=== PATIENT | female | born 1990 | race African-American/Black ===

== ENCOUNTER 2020-12-21 12:21 | Emergency (ER) | payer OTHER ==
[~2020-12-21] VITALS: Ht 172.7 cm; Wt 118.5 kg
[2020-12-21 12:22] VITALS: BP 142/86
== END 2020-12-21 13:58 | disposition home or self-care (01) ==
LOC: M ED 12:21
DX: R21 Rash and other nonspecific skin eruption (principal)

== ENCOUNTER 2021-04-14 19:48 | Emergency (ER) | payer OTHER ==
[~2021-04-14] VITALS: Ht 172.7 cm; Wt 120.5 kg
[2021-04-14 19:48] VITALS: BP 135/90
== END 2021-04-14 20:30 | disposition left against medical advice (07) ==
LOC: M ED 20:30
DX: Z53.21 Procedure and treatment not carried out due to patient leaving prior to being seen by health care provider (principal)

== ENCOUNTER 2021-04-17 18:32 | Emergency (ER) | payer OTHER ==
[~2021-04-17] VITALS: Ht 172.7 cm; Wt 120.5 kg
[2021-04-17 18:33] VITALS: BP 157/82
--- OUTSIDE RECORDS SUMMARY | 2021-04-17 18:39 | CCD ---
Author Author [facility] Organization [facility] Address Unknown Phone Unavailable Care Team Providers Care Screw Machine Operator Swiss Type Name Role Phone LUCY WAKEFIELD Unavailable Unavailable TURRIN, GUANAKO Unavailable Unavailable TURRIN, GUANAKO Unavailable Unavailable TURRIN, GUANAKO Unavailable Unavailable TURRIN, GUANAKO Unavailable Unavailable Re-disclosure Warning The records that you are about to access may contain information from federally-assisted alcohol or drug abuse programs. If such information is present, then the following federally mandated warning applies: This information has been disclosed to you from records protected by federal confidentiality rules (42 CFR part 2). The federal rules prohibit you from making any further disclosure of this information unless further disclosure is expressly permitted by the written consent of the person to whom it pertains or as otherwise permitted by 42 CFR part 2. A general authorization for the release of medical or other information is NOT sufficient for this purpose. The Federal rules restrict any use of the information to criminally investigate or prosecute any alcohol or drug abuse patient.The records that you are about to access may contain highly sensitive health information, the redisclosure of which is protected by Article 27-F of the [facility] Public Health law. If you continue you may have access to information: Regarding HIV / AIDS; Provided by facilities licensed or operated by the [facility] Office of Mental Health; or Provided by the [facility] Office for People With Developmental Disabilities. If such information is present, then the following [facility] mandated warning applies: This information has been disclosed to you from confidential records which are protected by state law. State law prohibits you from making any further disclosure of this information without the specific written consent of the person to whom it pertains, or as otherwise permitted by law. Any unauthorized further disclosure in violation of state law may result in a fine or longterm sentence or both. A general authorization for the release of medical or other information is NOT sufficient authorization for further disc losure. Encounters Encounter Providers Location Date Indications Data Source(s ) Emergency Attender: GUANAKO LOOConsultant: LUCY WAKEFIELD 04/14/2021 08:51:00 PM EST - 04/14/2021 10:59:00 PM EST [facility] Patient discharged. Medications No Information Insurance Providers Payer name Policy type / Coverage type Policy ID Covered libertarian ID Covered libertarian's relationship to thomas Policy Thomas Plan Information [facility] [id number] [facility] - O/P [id number] 18 [id number] Problems, Conditions, and Diagnoses No Information Surgeries/Procedures No Information Results ID Date Data Source [id number] 04/14/2021 08:51:00 PM EST [facility] 1 OrderSheet [facility] Emergency Department [address] [place] [address] Phone #: ext- [phone] 04/14/2021 20:47 Patient: CARLOS MANUEL RUIZ Sex: F : 1990 Age: 30yWEIGHT:120.2 kg HEIGHT:68 inches BMI:40.3ALLERGIES: IbuprofenCHIEF COMPLAINT: pelvic painDIAGNOSIS: Primary dysmenorrheaLAB ORDERSOrder Description Priority Entered Acknowledged InitialedCBC w Diff STAT 21:49 04/14/2021 21:52 Antonette Dumont Riccardo Katelyn M.D.;CMP STAT 21:49 04/14/2021 21:52 Antonette Dumont Riccardo Katelyn M.D.;HCG Serum Quant STAT 21:49 04/14/2021 21:52 Antonette Dumont Riccardo Katelyn M.D.;Type Rh STAT 21:49 04/14/2021 21:52 Antonette Dumont Riccardo Katelyn M.D.;UA Reflex to UA STAT 21:49 04/14/2021 21:52 Cedric Dumont Riccardo Katelyn M.D.;Lipase STAT 21:49 04/14/2021 21:52 Antonette Dumont Riccardo Katelyn M.D.;Lactic Acid STAT 21:49 04/14/2021 21:52 Antonette Dumont Riccardo Katelyn M.D.;DIAGNOSTIC STUDY ORDERSOrder Description Priority Entered Acknowledged InitialedMEDICATION/IV/DRIP/FLUID ORDERSOrder Description Priority Entered Acknowledged InitialedNaproxen PO 500 22:37 04/14/2021 Ack'd: 22:37 22:39 mg Antonette Kaufman Riccardo Torchia, Laura R.N. Laura R.N. M.D.; 2 OrderSheet [facility] Emergency Department [address] [place] [address] Phone #: ext- [phone] 04/14/2021 20:47 Patient: CARLOS MANUEL RUIZ Sex: F : 1990 Age: 30yGENERAL ORDERSOrder Description Priority Entered Acknowledged Initialed[Electronically signed by Tiffany Kaufman R.N. (22:59 04/14/2021)][Electronically signed by Guanako Loo M.D. (23:00 04/14/2021)][Electronically locked by Tiffany Kaufman R.N. (22:59 04/14/2021)] Name Value Range Interpretation Code Description Data Wanda rce(s) Supporting Document(s) ID Date Data Source [id number] 04/14/2021 08:51:00 PM EST [facility] 1 Medication Reconciliation Report [facility] Emergency Department [address] [place] [address] Phone #: ext- [phone] 04/14/2021 20:47 Patient: CARLOS MANUEL RUIZ Sex: F : 1990 Age: 30yWeight: 120.2 kgHeight/Length: 68 in.BMI: 40.3ALLERGIES: IbuprofenThe patient's Home Medications are listed below:NONE.The source(s) of the original Home Medication information:Not obtained.The following Medications were given to the patient in the Emergency Department:Naproxen [PO] PO 500 mg, administered: 22:39 04/14/2021The following Medications were prescribed to the patient:Naprosyn 500 mg tablet Take 1 tablet twice a day as needed for pain for 7 days -- take with food.Dispense 14 tablet. Refills: 0. Substitution permitted.Pharmacy - [address] ; [place] [address]. . -- Guanako Loo M.D. Name Value Range Interpretation Code Description Data Wanda rce(s) Supporting Document(s) ID Date Data Source [id number] 04/14/2021 08:51:00 PM EST [facility] 1 Medication Administration Record [facility] Emergency Department [address] [place] [address] Phone #: ext- [phone] 04/14/2021 20:47 Patient: CARLOS MANUEL RUIZ Sex: F : 1990 Age: 30yWeight: 120.2 kgHeight/Length: 68 inBMI: 40.3ALLERGIES: Ibuprofen Date/Time Medication Administered Medication OrderedGiven NAPROXEN [PO] Naproxen PO 500 mg22:39 04/14/2021 Dose: 500 mg Tiffany Smith R.N. Name Value Range Interpretation Code Description Data Wanda rce(s) Supporting Document(s) ID Date Data Source [id number] 04/14/2021 08:51:00 PM EST [facility] 1 General Instructions [facility] Emergency Department [address] [place] [address] Phone #: ext- [phone] 04/14/2021 20:47 Patient: CARLOS MANUEL RUIZ Sex: F : 1990 Age: 30y Primary dysmenorrheaINSTRUCTIONS Drink plenty of fluids. Warnings: Further evaluation is necessary in order to conduct further tests. It is very important to follow up with a healthcare provider. GENERAL WARNINGS: Return or contact your physician immediately if your condition worsens or changes unexpectedly, if not improving as expected, or if other problems arise. Specifically return if pain, vomiting, bleeding, breathing difficulty or fever greater than 102 degrees F and not controlled by acetaminophen or ibuprofen. Your Current Medications: . No home medication. Prescription Medications: Naprosyn 500 mg tablet Take 1 tablet twice a day as needed for pain for 7 days -- take with food. Dispense 14 tablet. Refills: 0. Substitution permitted. Pharmacy - [facility] - [id number] ; [place] [address]. . Follow-up: Return to the emergency department as needed. Follow up with your healthcare provider in five days even if well. Call for an appointment. Reason for referral: evaluation and treatment. Summary of care provided to patient via paper. Follow up with a sem manager in three days even if well. Call for an appointment. Reason for referral: evaluation and treatment. Summary of care provided to patient via paper. Understanding of the discharge instructions verbalized by patient. Expected course of illness, discharge instructions, activity level, diet, prescriptions x1, follow-up appointment and risks and benefits of treatment reviewed with patient and understanding verbalized. Agrees to plan of care. [facility]: [facility], , , [address], [place], [address] Follow up in three days even if well. Call for an appointment. Reason for referral: evaluation and treatment. Summary of care provided to patient via paper. 2 General Instructions [facility] Emergency Department [address] [place] [address] Phone #: ext- [phone] 04/14/2021 20:47 Patient: CARLOS MANUEL RUIZ Sex: F : 1990 Age: 30y ADDITIONAL INFORMATIONPainful Menstrual Periods (Dysmenorrhea)Dysmenorrhea is the term used to describe painful menstrual periods.The uterus is a muscle. Normally, chemicals called prostaglan dins cause the uterus to contract duringyour period. The contractions push out the build-up of tissue that occurs each month inside theuterus. If the contraction is very strong, it can cause pain. The pain may feel like cramping in thelower belly (abdomen), lower back, or thighs. In severe cases, you may have other symptoms as well.These can include nausea, vomiting, loose stools, sweating, or dizziness.There are 2 types of dysmenorrhea:Primary dysmenorrhea. This is common menstrual cramps. It may begin 1 or 2 years after you firstget your period. It may get better or go away as you get older or when you have a baby. The crampsare most often felt just before, or on the first day of your period. They may last 1 to 3 days. Treatmentis with medicines and comfort measures as described below (see the "Home care" section).Secondary dysmenorrhea . This may start later in life. It describes menstrual pain that occurs due reed underlying health problem. The pain may last longer than common menstrual cramps. It may alsoget worse over time. Some problems that can lead to secondary dysmenorrhea include: Pelvic inflammatory disease (PID). Infection that involves the female reproductive organs, such as the uterus and fallopian tubes Fibroids. Noncancer (benign) growths within the wall of the uterus. Endometriosis. Tissue that normally only lines the uterus also grows outside of it (because the abnormal tissue also swells and bleeds each month, it can cause pain). 3 General Instructions [facility] Emergency Department [address] [place] [address] Phone #: ext- [phone] 04/14/2021 20:47 Patient: CARLOS MANUEL RUIZ Sex: F : 1990 Age: 30yOnce the cause of secondary dysmenorrhea is found, it can be treated. Your healthcare provider willdiscuss options with you as needed. Your care may also include some of the treatments describedbelow (see the "Home care" section).Home careMedicinesCertain medicines can help ease or prevent menstrual pain and cramping. These can include: Nonsteroidal anti-inflammatory drugs (NSAIDs), such as ibuprofen Prescription pain medicine, if needed Hormone therapy (this includes most methods of hormonal control such as pills, vaginal rings, patches, shots, or a hormone-releasing IUD)General careTo help ease pain and cramping, try these tips: Rest as needed. Apply a heating pad to the lower belly or back as directed. A warm bath or massage to th kt areas may also help. Exercise regularly. Many women find that being more active each week helps reduce pain and cramping. Ask your healthcare provider for advice about other treatments you can try to help control pain and cramping.Follow-up careFollow up with your healthcare provider, or as advised.When to get medical adviceCall your healthcare provider right away if any of these occur: Fever of 100.4F (38C) or higher, or as directed by your provider Pain or cramping gets worse or doesn't get better with medicine Pain or cramping lasts longer than normal or occurs between periods Abnormal vaginal discharge between periods 4 General Instructions [facility] Emergency Department [address] [place] [address] Phone #: ext- [phone] 04/14/2021 20:47 Patient: CARLOS MANUEL RUIZ Sex: F : 1990 Age: 30y Bleeding becomes heavy (soaking more t hardy 1 pad or tampon every hour for 3 hours) Brush or renee tissue passes from the vagina [employer]. All rights reserved. This information is not intended as a substitute for professional medical care. Alwaysfollow your healthcare professional's instructions. You have been given the following additional information: Painful Menstrual Periods (Dysmenorrhea)(Electronically signed by Guanako Loo M.D. 04/14/2021 23:00) Name Value Range Interpretation Code Description Data Wanda rce(s) Supporting Document(s) ID Date Data Source [id number] 04/14/2021 08:51:00 PM EST [facility] 1 Clinical Report - Nurses [facility] Emergency Department [address] [place] [address] Phone #: cqs- [phone] 04/14/2021 20:47 Patient: CARLOS MANUEL RUIZ Sex: F : 1990 Age: 30yTRIAGEArrived by private vehicle. Historian: patient. Accompanied by friend and (in car).Acuity: LEVEL 4.Chief Complaint: (pelvic cramping).Alert. No acute distress.Onset. (2 weeks ago). ( Patient states 2 weeks ago she found out she was on a homepregnancy test. States she followed up for a blood test and it was negative. Since then, she has beenspotting and cramping.).Treatment LIVING SUPERVISOR:None.SEPSIS SCREEN: NEGATIVE.SEVERE SEPSIS SCREEN NEGATIVE. No signs of organ dysfunction present. --21:34 04/14/21 Pat Dumont1:28 04/14/21. BP: 133/92. HR: 74. RR: 18. O2 saturation: 100%. Temp: 97.3 F. Pain level now 11/23.--21:34 04/14/21 Renee Dumont.Weight: 120.2 kg. Height/Length: 68 inches. BMI: 40.3. --21:27 04/14/21 Renee Dumont.MedicationsNone. --21:30 04/14/21 Renee Dumont.AllergiesIbuprofen. --21:30 04/14/21 Renee Dumont.PROBLEMS:Nephrolithiasis.Gastric ulcer. --21:31 04/14/21 Jovana DumontnTubal . --21:34 04/14/21 Renee Dumont.ADDITIONAL SURGERIES:Endoscopy.Left kidney removed. --21:31 04/14/21 Bill Dumontalpingectomy (Right w appendectomy). --21:57 04/14/21 Guanako Loo M.D.The following entry was struck by Guanako Loo M.D., 21:57 04/14/21 2 Clinical Report - Nurses [facility] Emergency Department [address] [place] [address] Phone #: ext- [phone] 04/14/2021 20:47 ------ Patient: CARLOS MANUEL RUIZ [facility] Ll[facility]#: [id number] Sex: F : 1990 Age: 30y Salpingectomy (Left). --21:31 04/14/21 Renee Dumont. History PAST MEDICAL HX: Last normal menstrual period- March 19. SOCIAL HX: Never smoker. Occasional alcohol use. No drug use. No recent travel. No known contact with a sick individual. She was offered HIV testing but declined. Patient education was provided. She was offered hepatitis C testing but declined. Patient education was provided. She has not traveled outside the [place] Infectious disease exposure: No infectious disease exposure. The patient was not exposed to Coronavirus. Patient is not a known carrier of tuberculosis, hepatitis, HIV, MRSA or VRE. Patient is not a known carrier of CRE. SELF HARM ASSESSMENT: Self harm assessment was performed. The patient answered "no" to the question(s) &q uot;Have you recently felt down, depressed, or hopeless?" and "Do you have thoughts of harming or killing yourself?". ABUSE ASSESSMENT: Abuse assessment. The patient had positive responses to the question(s) "Do you feel safe in your home?" and "Are you afraid to go home?". Abuse denied. No suspicion of abuse. No report of abuse. NUTRITIONAL RISK ASSESSMENT: The nutritional risk assessment revealed no deficiencies. FUNCTIONAL ASSESSMENT: Functional assessment: no impairments noted. LEARNING NEEDS ASSESSMENT: The learning needs assessment revealed no barriers. FALL RISK ASSESSMENT: Fall risk assessment completed. No risk factors identified. SKIN INTEGRITY ASSESSMENT: Skin integrity risk assessment completed. No skin integrity risk identified. --21:34 04/14/21 Renee Dumont. Interventions Identification band on patient. --21:34 04/14/21 Renee Dumont.PHYSICAL ASSESSMENTAmbulatory to room.GENERAL / NEURO / PSYCH: Alert. Oriented X 4. Appears in no acute distress.HEENT: Mucous membranes are pink.RESPIRATORY: Respirations not labored. Breath sounds within normal limits.CVS: Normal sinus rhythm noted. Capillary refill less than 2 seconds.GI / : Abdomen soft and nontender. Bowel sounds within normal limits. ( patient reports intermittentpelvic cramping).SKIN: Skin is warm and dry. --21:35 04/14/21 Renee Dumont. 3 Clinical Report - Nurses [facility] Emergency Department [address] [place] [address] Phone #: ext- [phone] 04/14/2021 20:47 Patient: CARLOS MANUEL RUIZ Sex: F : 1990 Age: 30yNURSING PROGRESS NOTESPatient gowned. Reassurance given. Two patient identifiers checked. Call light placed in reach. Siderails up x 2. Bed placed in lowest position. Brakes of bed on. Patient ready for evaluation. --21: Renee Dumont Reassurance given. Rounding: Pain: assessed pain level. Position: states comfortable. Personal care / toileting: denies toileting needs. Proximity of possessions / care items: call light within easy reach. ( Lab in room for blood draw). --21:53 04/14/21 Renee Dumont 22:39 04/14/2021 Naproxen PO 500 mg given. Allergies verified and confirmed 5 rights. Information reviewed with patient. Verbalizes understanding. --22:39 04/14/21 Tiffany Kaufman R.N.DISPOSITION / DISCHARGE Departure time: late entry - 22:54 04/14/2021. Condition at departure: stable. No learning barriers present. Discharge instructions provided and reviewed with the patient. Reviewed warnings . Reviewed medication(s). Treatments reviewed. Reviewed referral to an army ranger for followup. Patient verbalized understanding. Written instructions provided in Jamaican. The patient was discharged by the physician. She was discharged home. She left ambulatory and via private vehicle. Patient driving. --22:59 04/14/21 Tiffany Kaufman R.N. 22:57 04/14/21. BP: 132/90. HR: 71. RR: 17. O2 saturation: 100%. Temp: 97.9 F. Pain level now 2/10. --22:59 04/14/21 Tiffany Kaufman R.N.Locked/Released at 04/14/2021 22:59 by Tiffany Kaufman R.N. Name Value Range Interpretation Code Description Data Wnada rce(s) Supporting Document(s) ID Date Data Source [id number] 04/14/2021 08:51:00 PM EST [facility] 1 Clinical Report - Physicians/Mid Levels [facility] Emergency Department [address] [place] [address] Phone #: ext- [phone] 04/14/2021 20:47 Patient: CARLOS MANUEL RUIZ Sex: F : 1990 Age: 30y Time Seen: 21:28 04/14/2021; initial patient contact. Arrived- By private vehicle. Historian- patient. Disposition decision: 22:38 04/14/2021.HISTORY OF PRESENT ILLNESS Chief Complaint: PELVIC PAIN. This started today and still present but is better now. It has been intermittent. The symptoms are described as mild. Modifying factors- relieved by rest. Not worsened by anything. The patient has had intermittent, crampy suprapubic pelvic pain. She has had abnormal bleeding described as spotting this am, gone now. No abdominal pain, vaginal pain, low back pain, flank pain or missed period(s). No irregular periods, vaginal discharge, vaginal itching, genital lesions or pain with urination. No urinary frequency, urgency of urination or hematuria. (pt had same cramping 2 weeks ago, did home preg test which was positive then blood test from base was negative; so pt not sure if she's today). Similar symptoms previously. None. Recent medical care: Not recently seen/assessed.REVIEW OF SYSTEMSNo nausea, vomiting, diarrhea, black stools or headache. No fever, chills, anorexia, eye discomfort orsore throat. No cough, chest pain, skin rash, enlarged lymph nodes or joint pain. All other systemsreviewed and are negative.PAST HISTORYSee nurses notes. Problems: Tubal . Nephrolithiasis. Gastric ulcer. Additional Surgeries: Appendectomy. Endoscopy. Left kidney removed. Salpingectomy. (Right w appendectomy). Medications: 2 Clinical Report - Physicians/Mid Levels [facility] Department [address] [place] [address] Phone #: ext- [phone] 04/14/2021 20:47 Patient: CARLOS MANUEL RUIZ Sex: F : 1990 Age: 30y None. Allergies: Ibuprofen.SOCIAL HISTORYNever smoker. No alcohol use or drug use. No recent travel.ADDITIONAL NOTESThe nursing notes have been reviewed with agreement regarding the chief complaint, HPI, ROS, PMH andpatient medications and allergies.PHYSICAL EXAMVital Signs: 04/14/2021 21:28 BP: 133/92. MAP: 105. HR: 74. RR: 18. O2 saturation: 100%. Temp: 97.3F. Have been reviewed. Oxygen saturation normal.Appearance: Alert. Oriented X3. No acute distress.HEENT: Normal external inspection.ENT: Pharynx normal.Neck: Neck supple.CVS: Heart sounds normal.Respiratory: No respiratory distress. Painless inspiration. Breath sounds normal. Chest nontender.Abdomen: Soft and nontender. Bowel sounds normal. No organomegaly. No mass. Mildly obese.Back: Normal external inspection. No CVA tenderness.Skin: Skin warm and dry. Normal skin color. No rash. Normal skin turgor.Extremities: Extremities nontender. No lower extremity edema.Neuro: Oriented X 3. Mood/affect normal. No motor deficit.LABS, X-RAYS, AND EKGLaboratory Tests: Laboratory tests have been ordered, with results reviewed and considered in themedical decision making process. CBC w Diff: (ALKA: 04/14/2021 21:59) ( MsgRcvd 04/14/2021 22:11) Final results Test Result Flag Units (Reference) CBC W/AUTOMATED DIFF COMPLETE BLOOD COUNT WBC 13.9 H 10/uL (4.2 - 11.0) RBC 4.79 10/uL (4.20 - 5.40) HEMOGLOBIN 13.5 g/dL (12.0 - 16.0) H EMATOCRIT 40.4 % (37.0 - 47.0) MCV 84.3 fL (81.0 - 101) MCH 28.2 pg (27.0 - 34.0) MCHC 33.4 g/dL (31.0 - 36.0) RDW 13.6 % (11.5 - 14.5) PLATELETS 308 10/uL (150 - 450) MPV 9.8 fL (7.4 - 10.4) NEUT 53.9 % (37.0 - 80.0) LYMPH 37.4 % (25.0 - 40.0) MONO 5.9 % (3.0 - 8.0) EOS 2.0 % (0.0 - 7.0) BASO 0.4 % (0.0 - 2.5) 3 Clinical Report - Physicians/Mid Levels [facility] Department [address] [place] [address] Phone #: ext- [phone] 04/14/2021 20:47 Patient: CARLOS MANUEL RUIZ Sex: F : 1990 Age: 30y %IG 0.4 H % (0.0 - 0.0) %NRBC 0.0 % (0.0 - 0.0) #NEUT 7.49 H 10/uL (2.00 - 6.90) #LYMPH 5.19 H 10/uL (0.60 - 3.40) #MONO 0.82 10/uL (0.00 - 0.90) #EOS 0.28 10/uL (0.00 - 0.70) #BASO 0.06 10/uL (0.00 - 0.20) #IG 0.05 10/uL (0.00 - 0.10) #NRBC 0.00 10/uL (0.00 - 0.00) MANUAL DIFF NOT INDICATED RBC MORPH NOT INDICATEDCMP: (ALKA: 04/14/2021 21:59) ( MsgRcvd 04/14/2021 22:31) Final results Test Result Flag Units (Reference) COMPREHENSIVE METABOLIC PANEL COMPREHENSIVE METABOLIC PANEL SODIUM 138 mEq/L (134 - 153) POTASSIUM 3.9 mEq/L (3.6 - 5.0) CHLORIDE 102 mEq/L (98 - 107) CO2 24 MEQ/L (22 - 30) GLUCOSE 92 MG/DL (70 - 99) BUN 15 MG/DL (7 - 21) CREATININE 0.8 MG/DL (0.7 - 1.5) BUN/CREAT 19 (8 - 27) TOTAL PROTEIN 7.9 G/DL (6.3 - 8.2) ALBUMIN 4.8 G/DL (3.9 - 5.0) GLOBULIN 3.1 GM/DL (2.4 - 3.2) A/G RATIO 1.5 (0.8 - 2.0) CALCIUM 9.9 MG/DL (8.4 - 10.2) TOTAL BILI <0.7 MG/DL (0.2 - 1.3) ALKALINE PHOS 87 U/L (38 - 126) SGOT/AST 26 U/L (5 - 40) SGPT/ALT 40 U/L (7 - 56) ANION GAP 12.0 mmol/L (8.0 - 16.0) AGE 30 yrs NON-AA GFR >60 mL/min AFR AMER GFR >60 mL/min Male GFR Interprentation 20-49 yrs >60 mL/min Mnrfyg78-84 yrs >56 mL/min Normal 60-69 yrs >49 mL/min Normal 70-79yrs>42 mL/min Normal 80 and above >35 mL/min Normal Female GFRInterpretation 20-39 yrs >60 mL/min Normal 40-49 yrs >58 mL/minNormal 50-59 yrs >51 mL/min Normal 60-69 yrs >45 mL/min Cnepvw82-75 yrs >39 mL/min Normal 80 and above >32 mL/min NormalBeta-HCG, Quant Serum: (ALKA: 04/14/2021 21:59) ( MsgRcvd 04/14/2021 22:31) Final results Test Result Flag Units (Reference) HCG QUANT <0.5 mIU/mL Interpretation: Less than 5 mU/mL: Negative6-10 mU/mL: Borderline (suggest repeat in 48 hours) >10: PositiveApprox HCG range (mU/mL) Weeks post LMP 5.4-708 mU/mL 3-4 Vkijc003- 24614 mU/mL 5-6 Weeks 4059-953106 mU/mL 7-8 [id number] mU/mL 9-10 Weeks 33108-63825 mU/mL 12-14 Zibgb19570-98712 mU/mL 15-16 Weeks 8240-10177 mU/mL 17-18 WeeksType Rh: (ALKA: 04/14/2021 21:59) ( MsgRcvd 04/14/2021 22:36) Final results Test Result Flag Units (Reference) 4 Clinical Report - Physicians/Mid Levels [facility] Department [address] [place] [address] Phone #: ext- [phone] 04/14/2021 20:47 Patient: CARLOS MANUEL RUIZ Sex: F : 1990 Age: 30y ABO GROUP A RH TYPE POSITIVE { ABO/RH REENTER A POSITIVE UA REFLEX TO UA CULTURE: (ALKA: 04/14/2021 21:55) ( MsgRcvd 04/14/2021 22:17) Final results Test Result Flag Units (Reference) UA REFLEX TO UA CULTURE URINALYSIS SOURCE R COLOR yellow (NORMAL: Y[place] CLARITY hazy (NORMAL: Clear SPEC GRAVITY 1.025 (1.001 - 1.030 pH 5 (5 - 9) GLUCOSE NORM (NORMAL: Negat BILIRUBIN NEG (NORMAL: Negat KETONE NEG (NORMAL: Negat PROTEIN NEG (NORMAL: Negat NITRITE NEG (NORMAL: Negat BLOOD NEG (NORMAL: Negat LEUK EST NEG (NORMAL: Negat UROBILINOGEN NOR (less than 1.0 MICROSCOPIC Not Indicate Lipase: (ALKA: 04/14/2021 21:59) ( [facility] 04/14[facility] 22:31) Final results Test Result Flag Units (Reference) LIPASE 31 U/L (13 - 60) Lactic Acid: (ALKA: 04/14/2021 21:59) ( [facility] 04/14[facility] 22:09) Final results Test Result Flag Units (Reference) LACTIC ACID 0.8 MMOL/L (0.2 - 2.2).PROGRESS AND PROCEDURESCourse of Care: 22:38 04/14/21. workup all in and reviewed and nml; quant. HCG is zero; pt not so dysmenorrhea; will treat for that; d/c instructions given, pt understands and agrees. Patient counseled in person regarding the patient's stable condition, test results, diagnosis and need for follow-up. Patient agrees with plan of care. Disposition: Condition: good and stable. Discharge decision based on the following: patient's condition is stable; patient's condition is improved; patient is ambulatory; patient is active; patient drinking fluids; patient eating; patient's pain is controlled; patient's exam is improved; no abnormal test results; improving condition on multiple repeat evaluations; social support is good; transportation is available; follow-up is available; clinical impression is consistent with outpatient treatment.CLINICAL IMPRESSION Primary dysmenorrhea 5 Clinical Report - Physicians/Mid Levels [facility] Emergency Department [address] [place] [address] Phone #: ext- [phone] 04/14/2021 20:47 Patient: CARLOS MANUEL RUIZ [place] Llct#: [id number] Sex: F : 1990 Age: 30yINSTRUCTIONS Drink plenty of fluids. Warnings: Further evaluation is necessary in order to conduct further tests. It is very important to follow up with a healthcare provider. GENERAL WARNINGS: Return or contact your physician immediately if your condition worsens or changes unexpectedly, if not improving as expected, or if other problems arise. Specifically return if pain, vomiting, bleeding, breathing difficulty or fever greater than 102 degrees F and not controlled by acetaminophen or ibuprofen. Your Current Medications: . No home medication. Prescription Medications: Naprosyn 500 mg tablet Take 1 tablet twice a day as needed for pain for 7 days -- take with food. Dispense 14 tablet. Refills: 0. Substitution permitted. Pharmacy - [facility] [id number] [facility] ; [place] [address]. . Follow-up: Return to the emergency department as needed. Follow up with your healthcare provider in five days even if well. Call for an appointment. Reason for referral: evaluation and treatment. Summary of care prov ided to patient via paper. Follow up with a sem manager in three days even if well. Call for an appointment. Reason for referral: evaluation and treatment. Summary of care provided to patient via paper. Understanding of the discharge instructions verbalized by patient. Expected course of illness, discharge instructions, activity level, diet, prescriptions x1, follow-up appointment and risks and benefits of treatment reviewed with patient and understanding verbalized. Agrees to plan of care. Follow-up with: [facility], , , [address] [place] [address], [phone] Follow up in three days even if well. Call for an appointment. Reason for referral: evaluation and treatment. Summary of care provided to patient via paper.(Electronically signed by Guanako Loo M.D. 04/14/2021 23:00) 6Clinical Report - Physicians/Mid Levels [facility] Emergency Department [address] [place], [place] [id number] Phone #: ext- [phone] 04/14/2021 20:47 Patient: CARLOS MANUEL RUIZ Sex: F : 1990 Age: 30y Name Value Range Interpretation Code Description Data Wanda rce(s) Supporting Document(s) ID Date Data Source [id number] 04/14/2021 10:35:[address] [facility] Name Value Range Interpretation Code Description Data Wanda rce(s) Supporting Document(s) ABO group [Type] in Blood A [facility] Rh [Type] in Blood POSITIVE [facility] { ABO/RH REENTER A POSITIVE ID Date Data Source [id number] 04/14/2021 10:31:[address] [facility] Name Value Range Interpretation Code Description Data Wanda rce(s) Supporting Document(s) Choriogonadotropin.intact [Units/volume] in Serum or Plasma <0.5 mIU/ mL [facility] Interpr etation: Less than 5 mU/mL: Negative 6-10 mU/mL: Borderline (suggest repeat in 48 hours) >10: Positive Approx HCG range (mU/mL) Weeks post LMP 5.4-708 mU/mL 3-4 Weeks 217-99597 mU/mL 5-6 Weeks 4059-492569 mU/mL 7-8 Weeks 37457-594114 mU/mL 9-10 Weeks 46215-05402 mU/mL 12-14 Weeks 72336-54987 mU/mL 15-16 Weeks 8240- 39224 mU/mL 17-18 Weeks ID Date Data Source [id number] 04/14/2021 10:31:[address] [facility] Name Value Range Interpretation Code Description Data Wanda rce(s) Supporting Document(s) Lipase [Enzymatic activity/volume] in Serum or Plasma 31 U/L 13 - 60 [facility] ID Date Data Source [id number] 04/14/2021 10:31:00 PM EST [facility] Name Value Range Interpretation Code Description Data Wanda rce(s) Supporting Document(s) COMPREHENSIVE METABOLIC PANEL [facility] COMPREHENSIVE METABOLIC PANEL Sodium [Moles/volume] in Serum or Plasma 138 mEq/L 134 - 153 [facility] Potassium [Moles/volume] in Serum or Plasma 3.9 mEq/L 3.6 - 5.0 [facility] Chloride [Moles/volume] in Serum or Plasma 102 mEq/L 98 - 107 [facility] Carbon dioxide, total [Moles/volume] in Serum or Plasma 24 MEQ/L 22 - 30 [facility] Glucose [Mass/volume] in Serum or Plasma 92 MG/DL 70 - 99 [facility] BUN 15 MG/DL 7 - 21 [facility] Creatinine [Mass/volume] in Serum or Plasma 0.8 MG/DL 0.7 - 1.5 [facility] BUN/CREAT 19 8 - 27 [facility] Protein [Mass/volume] in Serum or Plasma 7.9 G/DL 6.3 - 8.2 [facility] Albumin [Mass/volume] in Serum or Plasma 4.8 G/DL 3.9 - 5.0 [facility] Globulin [Mass/volume] in Serum by calculation 3.1 GM/DL 2.4 - 3.2 [facility] A/G RATIO 1.5 0.8 - 2.0 [facility] Calcium [Mass/volume] in Serum or Plasma 9.9 MG/DL 8.4 - 10.2 [facility] Bilirubin.total [Mass/volume] in Serum or Plasma <0.7 MG/DL 0.2 - 1.3 [facility] Alkaline phosphatase [Enzymatic activity/volume] in Serum or Plasma 87 U/L 38 - 126 [facility] Aspartate aminotransferase [Enzymatic activity/volume] in Serum or Plasma 26 U/L 5 - 40 [facility] Alanine aminotransferase [Enzymatic activity/volume] in Seru m or Plasma 40 U/L 7 - 56 [facility] Anion gap 3 in Serum or Plasma 12.0 mmol/L 8.0 - 16.0 [facility] AGE 30 yrs [facility] NON-AA GFR >60 mL/min [facility] ital AFR AMER GFR >60 mL/min [facility] Ho spital Male GFR In terprentation 20-49 yrs >60 mL/min Normal 50-59 yrs >56 mL/min Normal 60-69 yrs >49 mL/min Normal 70-79yrs >42 mL/min Normal 80 and above >35 mL/min Normal Female GFR Interpretation 20-39 yrs >60 mL/min Normal 40-49 yrs >58 mL/min Normal 50-59 yrs >51 mL/min Normal 60-69 yrs >45 mL/min Normal 70-79 yrs >39 mL/min Normal 80 and above >32 mL/min Normal ID Date Data Source [id number] 04/14/2021 10:11:00 PM EST [facility] Name Value Range Interpretation Code Description Data Wanda rce(s) Supporting Document(s) CBC W/AUTOMATED DIFF [facility] COMPLETE BLOOD COUNT Leukocytes [#/volume] in Blood by Automated count 13.9 10^3/uL 4.2 - 11.0 H [facility] Erythrocytes [#/volume] in Blood by Automated count 4.79 10^6/uL 4. 20 - 5.40 [facility] Hemoglobin [Mass/volume] in Blood 13.5 g/dL 12.0 - 16.0 [facility] Hematocrit [Volume Fraction] of Blood by Automated count 40.4 % 3 7.0 - 47.0 [facility] Erythrocyte mean corpuscular volume [Entitic volume] by Auto mated count 84.3 fL 81.0 - 101 [facility] Erythrocyte mean corpuscular hemoglobin [Entitic mass] by Automated count 28.2 pg 27.0 - 34.0 [facility] Erythrocyte mean corpuscular hemoglobin concentration [Mass/volume] by Automated count 33.4 g/dL 31.0 - 36.0 [facility] Erythrocyte distribution width [Ratio] by Automated count 13.6 % 11.5 - 14.5 [facility] Platelets [#/volume] in Blood by Automated count 308 10^3/uL 150 - 45 0 [facility] Platelet mean volume [Entitic volume] in Blood by Automated count 9.8 fL 7.4 - 10.4 [facility] Neutrophils/100 leukocytes in Blood by Automated count 53.9 % 37. 0 - 80.0 [facility] Lymphocytes/100 leukocytes in Blood by Manual count 37.4 % 25.0 - 40.0 [facility] Monocytes/100 leukocytes in Blood by Automated count 5.9 % 3.0 - 8.0 [facility] Eosinophils/100 leukocytes in Blood by Automated count 2.0 % 0.0 - 7.0 [facility] Basophils/100 leukocytes in Blood by Automated count 0.4 % 0.0 - 2.5 [facility] %IG 0.4 % 0.0 - 0.0 H [facility] %NRBC 0.0 % 0.0 - [facility] [#/volume] in Blood by Automated count 7.49 10^3/uL 2.00 - 6.90 H [facility] Lymphocytes [#/volume] in Blood by Automated count 5.19 10^3/uL 0.60 - 3.40 H [facility] Monocytes [#/volume] in Blood by Automated count 0.82 10^3/uL 0.00 - 0.90 [facility] Eosinophils [#/volume] in Blood by Automated count 0.28 10^3/uL 0.00 - 0.70 [facility] Basophils [#/volume] in Blood by Automated count 0.06 10^3/uL 0.00 - 0.20 [facility] #IG 0.05 10^3/uL 0.00 - 0.10 [facility] ospital #NRBC 0.00 10^3/uL 0.00 - 0.00 [facility] ospital MANUAL DIFF NOT INDICATED [facility] RBC MORPH NOT INDICATED [facility] spital ID Date Data Source [id number] 04/14/2021 10:08:[address] [facility] Name Value Range Interpretation Code Description Data Wanda rce(s) Supporting Document(s) Lactate [Moles/volume] in Serum or Plasma 0.8 MMOL/L 0.2 - 2.2 [facility] ID Date Data Source [id number] 04/14/2021 10:16:00 PM EST [facility] Name Value Range Interpretation Code Description Data Wanda rce(s) Supporting Document(s) UA REFLEX TO UA CULTURE [facility] URINALYSIS SOURCE R [facility] Hospit al COLOR yellow NORMAL: Yellow [facility]spital CLARITY hazy NORMAL: Clear [facility] spital Specific gravity of Urine by Test strip 1.025 1.001 - 1.030 [facility] pH 5 5 - 9 [facility] Glucose [Mass/volume] in Urine by Test strip NORM NORMAL: Negat [facility] Bilirubin.total [Presence] in Urine by Test strip NEG NORMAL: Negative [facility] Ketones [Presence] in Urine by Test strip NEG NORMAL: Negative [facility] Protein [Mass/volume] in Urine by Test strip NEG NORMAL: Negat [facility] Nitrite [Presence] in Urine by Test strip NEG NORMAL: Negative [facility] BLOOD NEG NORMAL: Negative [facility] Leukocyte esterase [Presence] in Urine by Test strip NEG FELICIA L: Negative [facility] Urobilinogen [Mass/volume] in Urine by Test strip NOR less shahbaz n 1.0 mg/dL [facility] MICROSCOPIC Not Indicate [facility] Procedure Social History No Information
[2021-04-17] MEDS ORDERED: MULTTAB20 PO (18:40)
--- OUTSIDE RECORDS SUMMARY | 2021-04-18 01:13 | CCD ---
Author Author [facility] Organization [facility] Address Unknown Phone Unavailable Care Team Providers Care Propagator Laborer Name Role Phone LUCY WAKEFIELD Unavailable Unavailable [...] is protected by Article 27-F of the [facility] Public Health law. If you continue you may have access to information: Regarding HIV / AIDS; Provided by facilities licensed or operated by the [facility] Office of Mental Health; or Provided by the [facility] Office for People With Developmental Disabilities. If such information is present, then the following [facility] mandated warning applies: This information has been [...] law may result in a fine or care home sentence or both. A general authorization for the release of medical or other information is NOT sufficient authorization for further disc losure. Encounters Encounter Providers Location Date Indications Data Source(s ) Emergency Attender: GUANAKO LOOConsultant: LUCY WAKEFIELD 04/14/2021 08:51:00 PM EST - 04/14/2021 10:59:00 PM EST [facility] Patient discharged. Medications No Information Insurance Providers Payer name Policy type / Coverage type Policy ID Covered democrat ID Covered democrat's relationship to thomas Policy Thomas Plan Information [facility] [id number] [facility] - O/P [id number] Problems, Conditions, and Diagnoses No Information Surgeries/Procedures No Information Results ID Date Data Source [id number] 04/14/2021 08:51:00 PM EST [facility] 1 OrderSheet [facility] Emergency Department [address] [place] [address] Phone #: ext- [phone] 04/14/2021 20:47 Patient: [...] Laura R.N. Laura R.N. M.D.; 2 OrderSheet [facility] Emergency Department [address] [place] [address] Phone #: ext- [phone] 04/14/2021 20:47 Patient: CARLOS MANUEL RUIZ Sex: F : 1990 Age: 30yGENERAL ORDERSOrder Description Priority Entered Acknowledged Initialed[Electronically signed by Tiffany Kaufman R.N. (22:59 04/14/2021)][Electronically signed by Guanako Loo M.D. (23:00 04/14/2021)][Electronically locked by Tiffany Kaufman R.N. (22:59 04/14/2021)] Name Value Range Interpretation Code Description Data Wanda rce(s) Supporting Document(s) ID Date Data Source [id number] 04/14/2021 08:51:00 PM EST [facility] 1 Medication Reconciliation Report [facility] Emergency Department [address] [place] [address] Phone #: ext- [phone] 04/14/2021 20:47 Patient: [...] 14 tablet. Refills: 0. Substitution permitted.Pharmacy - [address] ; [place] [address]. . -- Guanako Loo M.D. Name Value Range Interpretation Code Description Data Wanda rce(s) Supporting Document(s) ID Date Data Source [id number] 04/14/2021 08:51:00 PM EST [facility] 1 Medication Administration Record [facility] Emergency Department [address] [place] [address] Phone #: ext- [phone] 04/14/2021 20:47 Patient: CARLOS MANUEL RUIZ Sex: F : 1990 Age: 30yWeight: 120.2 kgHeight/Length: 68 inBMI: 40.3ALLERGIES: Ibuprofen Date/Time Medication Administered Medication OrderedGiven NAPROXEN [PO] Naproxen PO 500 mg22:39 04/14/2021 Dose: 500 mg Tiffany Smith R.N. Name Value Range Interpretation Code Description Data Wanda rce(s) Supporting Document(s) ID Date Data Source [id number] 04/14/2021 08:51:00 PM EST [facility] 1 General Instructions [facility] Emergency Department [address] [place] [address] Phone #: ext- [phone] 04/14/2021 20:47 Patient: CARLOS MANUEL RUIZ Sex: [...] tablet. Refills: 0. Substitution permitted. Pharmacy - [facility] - [id number] ; [place] [address]. . Follow-up: Return to the emergency department as needed. Follow up with your healthcare provider in five days even if well. Call for an appointment. Reason for referral: evaluation and treatment. Summary of care provided to patient via paper. Follow up with a rn anesthetist in three days even if well. Call [...] to plan of care. Follow-up with: [facility], , , [address] [facility] [address], [place], [address] Follow up in three days even if well. Call for an appointment. Reason for referral: evaluation and treatment. Summary of care provided to patient via paper. 2 General Instructions [facility] Emergency Department [address] [place] [address] Phone #: ext- [phone] 04/14/2021 20:47 Patient: [...] it can cause pain). 3 General Instructions [facility] Emergency Department [address] [place] [address] Phone #: ext- [phone] 04/14/2021 20:47 Patient: [...] vaginal discharge between periods 4 General Instructions [facility] Emergency Department [address] [place] [address] Phone #: ext- [phone] 04/14/2021 20:47 Patient: CARLOS MANUEL RUIZ Sex: F : 1990 Age: 30y Bleeding becomes heavy (soaking more t hardy 1 pad or tampon every hour for 3 hours) [employer] or renee tissue passes from the vagina [employer]. All rights reserved. This information is not intended as a substitute for professional medical care. Alwaysfollow your healthcare professional's instructions. You have been given the following additional information: Painful Menstrual Periods (Dysmenorrhea)(Electronically signed by Guanako Loo M.D. 04/14/2021 23:00) Name Value Range Interpretation Code Description Data Wanda rce(s) Supporting Document(s) ID Date Data Source [id number] 04/14/2021 08:51:00 PM EST [facility] 1 Clinical Report - Nurses [facility] Emergency Department [address] [place] [address] Phone #: [phone]- [phone] 04/14/2021 20:47 Patient: CARLOS MANUEL RUIZ Sex: [...] Since then, she has beenspotting and cramping.).Treatment RISK MANAGEMENT INTERNSHIP:None.SEPSIS SCREEN: NEGATIVE.SEVERE SEPSIS SCREEN NEGATIVE. No signs [...] 21:57 04/14/21 2 Clinical Report - Nurses [facility] Emergency Department [address] [place] [address] Phone #: ext- [phone] 04/14/2021 20:47 ------ [id number] Sex: F : 1990 Age: 30y Salpingectomy [...] Renee Dumont. 3 Clinical Report - Nurses [facility] Emergency Department [address] [place] [address] Phone #: ext- [phone] 04/14/2021 20:47 Patient: CARLOS MANUEL RUIZ Sex: F : 1990 Age: 30yNURSING PROGRESS NOTESPatient gowned. Reassurance given. Two patient identifiers checked. Call light placed in reach. Siderails up x 2. Bed placed in lowest position. Brakes of bed on. Patient ready for evaluation. --21: eRnee Dumont Reassurance given. Rounding: Pain: assessed pain [...] medication(s). Treatments reviewed. Reviewed referral to an thermite welder for followup. Patient verbalized understanding. Written instructions provided in Cypriot. The patient was discharged by the physician. [...] rce(s) Supporting Document(s) ID Date Data Source [id number] 04/14/2021 08:51:00 PM EST [facility] 1 Clinical Report - Physicians/Mid Levels [facility] Emergency Department [address] [place] [address] Phone #: ext- [phone] 04/14/2021 20:47 Patient: [...] Medications: 2 Clinical Report - Physicians/Mid Levels [facility] Emergency Department [address] [place] [address] Phone #: ext- [phone] 04/14/2021 20:47 Patient: CARLOS MANUEL RUIZ Sex: [...] 2.5) 3 Clinical Report - Physicians/Mid Levels [facility] Emergency Department [address] [place] [address] Phone #: ext- [phone] 04/14/2021 20:47 Patient: [...] Male GFR Interprentation 20-49 yrs >60 mL/min Bkftcb33-45 yrs >56 mL/min Normal 60-69 yrs >49 mL/min Normal 70-79yrs>42 mL/min Normal 80 and above >35 mL/min Normal Female GFRInterpretation 20-39 yrs >60 mL/min Normal 40-49 yrs >58 mL/minNormal 50-59 yrs >51 mL/min Normal 60-69 yrs >45 mL/min Kikzhv34-34 yrs >39 mL/min Normal 80 and above >32 mL/min NormalBeta-HCG, Quant Serum: (ALKA: 04/14/2021 21:59) ( MsgRcvd 04/14/2021 22:31) Final results Test Result Flag Units (Reference) HCG QUANT <0.5 mIU/mL Interpretation: Less than 5 mU/mL: Negative6-10 mU/mL: Borderline (suggest repeat in 48 hours) >10: PositiveApprox HCG range (mU/mL) Weeks post LMP 5.4-708 mU/mL 3-4 Pytos308- 32280 mU/mL 5-6 Weeks 4059-113657 mU/mL 7-8 Mqhro43154-895496 mU/mL 9-10 Weeks 11139-27099 mU/mL 12-14 Tvcvm97676-63183 mU/mL 15-16 Weeks 8240-06198 mU/mL 17-18 WeeksType Rh: (ALKA: 04/14/2021 21:59) ( MsgRcvd 04/14/2021 22:36) Final results Test Result Flag Units (Reference) 4 Clinical Report - Physicians/Mid Levels [facility] Emergency Department [address] [place] [address] Phone #: ext- [phone] 04/14/2021 20:47 Patient: [...] Not Indicate Lipase: (ALKA: 04/14/2021 21:59) ( [facility] 04/14/2021 22:31) Final results Test Result Flag Units (Reference) LIPASE 31 U/L (13 - 60) Lactic Acid: (ALKA: 04/14/2021 21:59) ( [facility] 04/14/2021 22:09) Final results Test Result Flag [...] dysmenorrhea 5 Clinical Report - Physicians/Mid Levels [facility] Emergency Department [address] [place] [address] Phone #: ext- [phone] 04/14/2021 20:47 Patient: [id number] Sex: F : 1990 Age: 30yINSTRUCTIONS Drink [...] tablet. Refills: 0. Substitution permitted. Pharmacy - [facility] [id number] ; [place] [address]. . Follow-up: Return to the emergency department as needed. Follow up with your healthcare provider in five days even if well. Call for an appointment. Reason for referral: evaluation and treatment. Summary of care prov ided to patient via paper. Follow up with a rn anesthetist in three days even if well. Call [...] Agrees to plan of care. Follow-up with: [facility], , , [address] [place] [address], [id number] Follow up in three days even if well. Call for an appointment. Reason for referral: evaluation and treatment. Summary of care provided to patient via paper.(Electronically signed by Guanako Loo M.D. 04/14/2021 23:00) 6Clinical Report - Physicians/Mid Levels [facility] Emergency Department [address] [place], [place] [id number] Phone #: ext- [phone] 04/14/2021 20:47 Patient: CARLOS MANUEL RUIZ Sex: F : 1990 Age: 30y Name Value Range Interpretation Code Description Data Wanda rce(s) Supporting Document(s) ID Date Data Source [id number] 04/14/2021 10:35:00 PM [facility] Name Value Range Interpretation Code Description Data Wanda rce(s) Supporting Document(s) ABO group [Type] in Blood A [facility] Rh [Type] in Blood POSITIVE [facility] { ABO/RH REENTER A POSITIVE ID Date Data Source [id number] 04/14/2021 10:31:00 PM [facility] Name Value Range Interpretation Code Description Data Wanda rce(s) Supporting Document(s) Choriogonadotropin.intact [Units/volume] in Serum or Plasma <0.5 mIU/ mL [facility] Interpr etation: Less than 5 mU/mL: Negative 6-10 mU/mL: Borderline (suggest repeat in 48 hours) >10: Positive Approx HCG range (mU/mL) Weeks post LMP 5.4-708 mU/mL 3-4 Weeks 217-74585 mU/mL 5-6 Weeks 4059-024827 mU/mL 7-8 Weeks 23306-127609 mU/mL 9-10 Weeks 74497-74147 mU/mL 12-14 Weeks 86678-55240 mU/mL 15-16 Weeks 8240- 06301 mU/mL 17-18 Weeks ID Date Data Source [id number] 04/14/2021 10:31:00 PM [facility] Name Value Range Interpretation Code Description Data Wanda rce(s) Supporting Document(s) Lipase [Enzymatic activity/volume] in Serum or Plasma 31 U/L 13 - 60 [facility] ID Date Data Source [id number] 04/14/2021 10:31:00 PM EST [facility] Name Value Range Interpretation Code Description Data Wanda rce(s) Supporting Document(s) COMPREHENSIVE METABOLIC PANEL [facility] COMPREHENSIVE METABOLIC PANEL Sodium [Moles/volume] in Serum or Plasma 138 mEq/L 134 - 153 [facility] Potassium [Moles/volume] in Serum or Plasma 3.9 mEq/L 3.6 - 5.0 [facility] Chloride [Moles/volume] in Serum or Plasma 102 mEq/L 98 - 107 [facility] Carbon dioxide, total [Moles/volume] in Serum or Plasma 24 MEQ/L 22 - 30 [facility] Glucose [Mass/volume] in Serum or Plasma 92 MG/DL 70 - 99 [facility] BUN 15 MG/DL 7 - 21 [facility] Creatinine [Mass/volume] in Serum or Plasma 0.8 MG/DL 0.7 - 1.5 [facility] BUN/CREAT 19 8 - 27 [facility] Protein [Mass/volume] in Serum or Plasma 7.9 G/DL 6.3 - 8.2 [facility] Albumin [Mass/volume] in Serum or Plasma 4.8 G/DL 3.9 - 5.0 [facility] Globulin [Mass/volume] in Serum by calculation 3.1 GM/DL 2.4 - 3.2 [facility] A/G RATIO 1.5 0.8 - 2.0 [facility] Calcium [Mass/volume] in Serum or Plasma 9.9 MG/DL 8.4 - 10.2 [facility] Bilirubin.total [Mass/volume] in Serum or Plasma <0.7 MG/DL 0.2 - 1.3 [facility] Alkaline phosphatase [Enzymatic activity/volume] in Serum or Plasma 87 U/L 38 - 126 [facility] Aspartate aminotransferase [Enzymatic activity/volume] in Serum or Plasma 26 U/L 5 - 40 [facility] Alanine aminotransferase [Enzymatic activity/volume] in Seru m or Plasma 40 U/L 7 - 56 [facility] Anion gap 3 in Serum or Plasma 12.0 mmol/L 8.0 - 16.0 [facility] AGE 30 yrs [facility] NON-AA GFR >60 mL/min [facility] AFR AMER GFR >60 mL/min [facility] Male GFR In terprentation [...] >32 mL/min Normal ID Date Data Source [id number] 04/14/2021 10:11:00 PM EST [facility] Name Value Range Interpretation Code Description Data Wanda rce(s) Supporting Document(s) CBC W/AUTOMATED DIFF [facility] COMPLETE BLOOD COUNT Leukocytes [#/volume] in Blood by Automated count 13.9 10^3/uL 4.2 - 11.0 H [facility] Erythrocytes [#/volume] in Blood by Automated count 4.79 10^6/uL 4. 20 - 5.40 [facility] Hemoglobin [Mass/volume] in Blood 13.5 g/dL 12.0 - 16.0 [facility] Hematocrit [Volume Fraction] of Blood by Automated count 40.4 % 3 7.0 - 47.0 [facility] Erythrocyte mean corpuscular volume [Entitic volume] by Auto mated count 84.3 fL 81.0 - 101 [facility] Erythrocyte mean corpuscular hemoglobin [Entitic mass] by Automated count 28.2 pg 27.0 - 34.0 [facility] Erythrocyte mean corpuscular hemoglobin concentration [Mass/volume] by Automated count 33.4 g/dL 31.0 - 36.0 [facility] Erythrocyte distribution width [Ratio] by Automated count 13.6 % 11.5 - 14.5 [facility] Platelets [#/volume] in Blood by Automated count 308 10^3/uL 150 - 45 0 [facility] Platelet mean volume [Entitic volume] in Blood by Automated count 9.8 fL 7.4 - 10.4 [facility] Neutrophils/100 leukocytes in Blood by Automated count 53.9 % 37. 0 - 80.0 [facility] Lymphocytes/100 leukocytes in Blood by Manual count 37.4 % 25.0 - 40.0 [facility] Monocytes/100 leukocytes in Blood by Automated count 5.9 % 3.0 - 8.0 [facility] Eosinophils/100 leukocytes in Blood by Automated count 2.0 % 0.0 - 7.0 [facility] Basophils/100 leukocytes in Blood by Automated count 0.4 % 0.0 - 2.5 [facility] %IG 0.4 % 0.0 - 0.0 H [facility] %NRBC 0.0 % 0.0 - 0.0 [facility] Neutrophils [#/volume] in Blood by Automated count 7.49 10^3/uL 2.00 - 6.90 H [facility] Lymphocytes [#/volume] in Blood by Automated count 5.19 10^3/uL 0.60 - 3.40 H [facility] Monocytes [#/volume] in Blood by Automated count 0.82 10^3/uL 0.00 - 0.90 [facility] Eosinophils [#/volume] in Blood by Automated count 0.28 10^3/uL 0.00 - 0.70 [facility] Basophils [#/volume] in Blood by Automated count 0.06 10^3/uL 0.00 - 0.20 [facility] #IG 0.05 10^3/uL 0.00 - 0.10 [facility] ospital #NRBC 0.00 10^3/uL 0.00 - 0.00 [facility] ospital MANUAL DIFF NOT INDICATED [facility] RBC MORPH NOT INDICATED [facility] ID Date Data Source [id number] 04/14/2021 10:08:00 PM [facility] Name Value Range Interpretation Code Description Data Wanda rce(s) Supporting Document(s) Lactate [Moles/volume] in Serum or Plasma 0.8 MMOL/L 0.2 - 2.2 [facility] ID Date Data Source [id number] 04/14/2021 10:16:00 PM EST [facility] Name Value Range Interpretation Code Description Data Wanda rce(s) Supporting Document(s) UA REFLEX TO UA CULTURE [facility] URINALYSIS SOURCE R [facility] COLOR yellow NORMAL: Yellow [facility] CLARITY hazy NORMAL: Clear [facility] spital Specific gravity of Urine by Test strip 1.025 1.001 - 1.030 [facility] pH 5 5 - 9 [facility] Glucose [Mass/volume] in Urine by Test strip NORM NORMAL: Negat [facility] Bilirubin.total [Presence] in Urine by Test strip NEG NORMAL: Negative [facility] Ketones [Presence] in Urine by Test strip NEG NORMAL: Negative [facility] Protein [Mass/volume] in Urine by Test strip NEG NORMAL: Negat [facility] Nitrite [Presence] in Urine by Test strip NEG NORMAL: Negative [facility] BLOOD NEG NORMAL: Negative [facility] Leukocyte esterase [Presence] in Urine by Test strip NEG FELICIA L: Negative [facility] Urobilinogen [Mass/volume] in Urine by Test strip NOR less shahbaz n 1.0 mg/dL [facility] MICROSCOPIC Not Indicate [facility] Procedure Social History No Information
== END 2021-04-18 01:39 | disposition left against medical advice (07) ==
LOC: M ED 18:32
DX: Z53.21 Procedure and treatment not carried out due to patient leaving prior to being seen by health care provider (principal)

== ENCOUNTER → 2021-08-07 | Outpatient (CLI) | payer OTHER ==
[~2021-08-07] MED LIST: ISOVUE-370 76% 100ML VIAL As Ordered ONE; MULTTAB20 PO; SILVER NITRATE APPLICATOR As Ordered ONE
== END ==
LOC: M RADPRO 11:11
PROVIDERS: ATTEND Obstetrics & Gynecology
DX: N97.9 Female infertility, unspecified (principal); Z53.8 Procedure and treatment not carried out for other reasons